=== PATIENT | female | born 1985 | race Caucasian/White ===

== ENCOUNTER 2019-02-02 21:20 | Emergency (ER) | payer OTHER ==
[~2019-02-02] VITALS: Ht 160 cm; Wt 86.2 kg
--- NOTE | 2019-02-02 22:09 | NUR ---
Patient discharged to home in stable conditon. Written and verbal after care instructions given. Patient verbalizes understanding of instructions. Patient ambulating with steady gait
[2019-02-02 22:11] VITALS: BP 104/63
[2019-02-02] MEDS ORDERED: HYDROCODONE/APAP 10-325 MG TABLET PO ONE (22:15)
== END 2019-02-02 22:08 | disposition home or self-care (01) ==
LOC: ER 21:29
DX: M43.6 Torticollis (principal); J45.909 Unspecified asthma, uncomplicated
CPT/HCPCS: A4663

== ENCOUNTER 2019-02-26 12:16 | Emergency (ER) | payer OTHER ==
[~2019-02-26] VITALS: Ht 160 cm; Wt 90.7 kg
--- NOTE | 2019-02-26 12:45 | NUR ---
LOI KUHN AT BEDSIDE FOR MSE.
[2019-02-26] MEDS ORDERED: HYDROMORPHONE 1 MG/1 ML DISP.SYRIN IM ONE (13:00)
[2019-02-26] MEDS ORDERED: ONDANSETRON 4 MG/2 ML VIAL IM ONE (13:00)
[2019-02-26 13:01] VITALS: BP 120/75
--- NOTE | 2019-02-26 13:01 | NUR ---
Patient discharged to home in stable conditon. Written and verbal after care instructions given. Patient verbalizes understanding of instructions. ALL BELONGINGS W/ PT. PT SELF-AMBULATED W/O DIFFICULTY.
== END 2019-02-26 13:02 | disposition home or self-care (01) ==
LOC: ER 12:17
DX: M43.6 Torticollis (principal); J45.909 Unspecified asthma, uncomplicated
CPT/HCPCS: 96372 ×2; 99283; J1170; J2405; A4663

== ENCOUNTER 2019-03-31 19:23 | Emergency (ER) | payer OTHER ==
[~2019-03-31] VITALS: Ht 160 cm; Wt 86.2 kg
[2019-03-31] MEDS ORDERED: HYDROCODONE/APAP 10-325 MG TABLET ONE (20:59)
[2019-03-31] MEDS: HYDROCODONE/APAP 10-325 MG TABLET PO ONE (21:01)
--- NOTE | 2019-03-31 21:07 | NUR ---
PT STATES SHE WANTS TO GO HOME AND SLEEP STATES FRIEND WILL DRIVE HER HOME Patient discharged to home in stable conditon. Written and verbal after care instructions given. Patient verbalizes understanding of instructions. ANTALGIC GAIT DUE TO CHRONIC BACK PAIN PT BELONGINGS W/ HER
[2019-03-31 21:10] VITALS: BP 110/84
== END 2019-03-31 21:11 | disposition home or self-care (01) ==
LOC: ER 19:24
DX: M54.6 Pain in thoracic spine (principal); J45.909 Unspecified asthma, uncomplicated; Z88.2 Allergy status to sulfonamides
CPT/HCPCS: A4663

== ENCOUNTER 2019-05-02 21:55 | Emergency (ER) | payer OTHER ==
[~2019-05-02] VITALS: Ht 160 cm; Wt 86.2 kg
[2019-05-02] MEDS ORDERED: ALBU8.5H8 IH (22:01)
--- NOTE | 2019-05-02 22:07 | NUR ---
Dr. Franklin at bedside for MSE.
[2019-05-02] MEDS ORDERED: LORAZEPAM 2 MG/1 ML VIAL IV ONE (22:15)
[2019-05-02] MEDS ORDERED: LORAZEPAM 2 MG/1 ML VIAL ONE (22:16)
[2019-05-02] MEDS ORDERED: HYDROCODONE/APAP 10-325 MG TABLET ONE (22:50)
--- NOTE | 2019-05-02 22:54 | NUR ---
Patient discharged to home in stable conditon. Written and verbal after care instructions given. Patient verbalizes understanding of instructions. Pt ambulated out of ER with steady gait, no acute signs of distress, VSS, all belongings taken, IV site discontinued.
[2019-05-02 22:55] VITALS: BP 110/65
[2019-05-02] MEDS ORDERED: HYDROCODONE/APAP 10-325 MG TABLET PO ONE (23:00)
[2019-05-29] MEDS ORDERED: CEPH-570 PO (20:42)
== END 2019-05-02 22:55 | disposition home or self-care (01) ==
LOC: ER 21:56
DX: G89.29 Other chronic pain (principal); M25.512 Pain in left shoulder; M54.2 Cervicalgia; F11.20 Opioid dependence, uncomplicated; J45.909 Unspecified asthma, uncomplicated; Z88.2 Allergy status to sulfonamides; Z79.899 Other long term (current) drug therapy
CPT/HCPCS: 96374; 99283; J2060; A4663

== ENCOUNTER 2019-05-29 20:30 | Emergency (ER) | payer OTHER ==
[~2019-05-29] VITALS: Ht 160 cm; Wt 86.2 kg
--- NOTE | 2019-05-29 20:49 | NUR ---
Dr. Ng at bedside for MSE.
[2019-05-29] MEDS ORDERED: HYDROCODONE/APAP 10-325 MG TABLET ONE (20:52)
[2019-05-29 20:55] VITALS: BP 145/98
--- NOTE | 2019-05-29 20:55 | NUR ---
Patient discharged to home in stable conditon. Written and verbal after care instructions given. Patient verbalizes understanding of instructions. Pt ambulated out of ER with steady gait, no acute signs of distress, VSS, all belongings taken.
[2019-05-29] MEDS ORDERED: HYDROCODONE/APAP 10-325 MG TABLET PO ONE (21:00)
== END 2019-05-29 20:55 | disposition home or self-care (01) ==
LOC: ER 20:30
DX: G89.29 Other chronic pain (principal); M25.512 Pain in left shoulder; J45.909 Unspecified asthma, uncomplicated
CPT/HCPCS: A4663

== ENCOUNTER 2019-06-28 06:41 | Emergency (ER) | payer OTHER ==
[~2019-06-28] VITALS: Ht 160 cm; Wt 72.6 kg
[~2019-06-28 06:41] MED LIST: ALBU8.5H8 IH; CEPH-570 PO
--- NOTE | 2019-06-28 07:14 | NUR ---
Patient is 33yo female complaining of sharp pain in her neck and shoulders, and shooting pain in her lower back, down through her right knee. Patient is A&Ox3, and V/S are WNL (b/p= 115/62 HR=95). Patient is able to verbalize all needs. No SOB or respiratory distress reported. Will continue to monitor closely.
--- NOTE | 2019-06-28 07:26 | NUR ---
Patient discharged to home in stable condition.Patient instructed not to drive while taking medications. Written and verbal after care instructions given. Patient verbalizes understanding of instructions. Stressed follow up or return to ER for worsening s/s.
== END 2019-06-28 07:29 | disposition home or self-care (01) ==
LOC: ER 06:43
DX: M54.12 Radiculopathy, cervical region (principal); M54.30 Sciatica, unspecified side; G89.29 Other chronic pain; J45.909 Unspecified asthma, uncomplicated
CPT/HCPCS: A4663

== ENCOUNTER 2019-08-05 17:04 | Emergency (ER) | payer OTHER ==
[~2019-08-05] VITALS: Ht 160 cm; Wt 86.2 kg
--- NOTE | 2019-08-05 17:29 | NUR ---
Dr. Alejanrda at bedside for MSE
[2019-08-05] MEDS ORDERED: KETOROLAC TROMETHAMINE 30 MG INJ ONE (17:44)
[2019-08-05] MEDS ORDERED: HYDROCODONE/APAP 5-325MG TABLET PO ONE (17:45)
[2019-08-05] MEDS ORDERED: KETOROLAC TROMETHAMINE 30 MG INJ IM ONE (17:45)
[2019-08-05] MEDS ORDERED: HYDROCODONE/APAP 5-325MG TABLET ONE (17:45)
--- NOTE | 2019-08-05 17:57 | NUR ---
Patient discharged to home in stable condition. Written and verbal after care instructions given. Patient verbalizes understanding of instructions. Stressed follow up or return to ER for worsening s/s. Patient ambulating with steady gait. NAD noted. Patient states she is getting home via [employer]. patient showed [employer] trip confirmation.
[2019-08-05 18:02] VITALS: BP 121/81
== END 2019-08-05 17:57 | disposition home or self-care (01) ==
LOC: ER 17:06
DX: M54.12 Radiculopathy, cervical region (principal); G89.29 Other chronic pain; M25.512 Pain in left shoulder; J45.909 Unspecified asthma, uncomplicated; Z79.899 Other long term (current) drug therapy
CPT/HCPCS: 96372; 99283; J1885; A4663

== ENCOUNTER 2019-09-08 19:16 | Emergency (ER) | payer OTHER ==
[~2019-09-08] VITALS: Ht 157.5 cm; Wt 86.2 kg
--- NOTE | 2019-09-08 19:32 | NUR ---
DR. CARRILLO AT BEDSIDE FOR MSE.
[2019-09-08 19:42] VITALS: BP 145/88
[2019-09-08] MEDS ORDERED: HYDROCODONE/APAP 10-325 MG TABLET ONE (19:42)
--- NOTE | 2019-09-08 19:42 | NUR ---
Patient discharged to home in stable condition. Written and verbal after care instructions given. Patient verbalizes understanding of instructions. Stressed follow up or return to ER for worsening s/s. PATIENT LEFT WITH STABLE GAIT.
[2019-09-08] MEDS ORDERED: HYDROCODONE/APAP 10-325 MG TABLET PO ONE (19:45)
== END 2019-09-08 19:50 | disposition home or self-care (01) ==
LOC: ER 19:18
DX: M25.512 Pain in left shoulder (principal); G89.29 Other chronic pain; J45.909 Unspecified asthma, uncomplicated; F11.20 Opioid dependence, uncomplicated
CPT/HCPCS: A4663

== ENCOUNTER 2019-10-01 22:27 | Emergency (ER) | payer OTHER ==
[~2019-10-01] VITALS: Ht 160 cm; Wt 86.2 kg
--- NOTE | 2019-10-01 23:03 | NUR ---
Dr. Rivera at bedside for MSE
--- NOTE | 2019-10-01 23:09 | NUR ---
Patient discharged to home in stable condition. Written and verbal after care instructions given. Patient verbalizes understanding of instructions. Stressed follow up or return to ER for worsening s/s. aa/ox4. able to speak in complete sentences respirations even and unlabored ambulatory with steady gait all belongings with pt
[2019-10-01 23:11] VITALS: BP 120/48
== END 2019-10-01 23:09 | disposition home or self-care (01) ==
LOC: ER 22:28
DX: M54.12 Radiculopathy, cervical region (principal); J45.909 Unspecified asthma, uncomplicated
CPT/HCPCS: A4663

== ENCOUNTER 2019-12-28 11:29 | Emergency (ER) | payer OTHER ==
[~2019-12-28] VITALS: Ht 160 cm; Wt 86.2 kg
[~2019-12-28 11:29] MED LIST changes: -CEPH-570 PO
[2019-12-28] MEDS ORDERED: ACETAMINOPHEN 325 MG TABLET PO ONE (11:45)
[2019-12-28] MEDS ORDERED: DIAZEPAM 2 MG TABLET PO ONE (11:45)
[2019-12-28] MEDS ORDERED: KETOROLAC TROMETHAMINE 30 MG INJ IM ONE (11:45)
[2019-12-28] MEDS ORDERED: CYCLOBENZAPRINE HCL 10 MG TABLET PO ONE (11:45)
[2019-12-28] MEDS ORDERED: LIDOCAINE 5% PATCH TD ONE ×2 (11:45→11:59)
[2019-12-28] MEDS ORDERED: DEXAMETHASONE SOD PHOSPHATE 4 MG INJ IM ONE (11:45)
[2019-12-28] MEDS ORDERED: ACETAMINOPHEN ES 500 MG TABLET ONE (11:57)
[2019-12-28] MEDS ORDERED: KETOROLAC TROMETHAMINE 30 MG INJ ONE (11:57)
[2019-12-28] MEDS ORDERED: CYCLOBENZAPRINE HCL 10 MG TABLET ONE (11:57)
[2019-12-28] MEDS ORDERED: DEXAMETHASONE SOD PHOSPHATE 10 MG INJ ONE (11:59)
[2019-12-28] MEDS ORDERED: DIAZEPAM 5 MG TABLET ONE (11:59)
[2019-12-28 12:01] LABS: *URINE HCG, QUAL NEG (NEGATIVE)
[2019-12-28 12:12] LABS: *AMPHETAMINE, URINE NEGATIVE (NEGATIVE); *CANNABINOID, URINE NEGATIVE (NEGATIVE); *COCCAINE, URINE NEGATIVE (NEGATIVE); *OPIATE, URINE POSITIVE (NEGATIVE); *PHENCYCLIDINE SCREEN,URINE NEGATIVE (NEGATIVE)
--- NOTE | 2019-12-28 13:42 | NUR ---
Patient discharged to home in stable condition. Written and verbal after care instructions given. Patient verbalizes understanding of instructions. Stressed follow up or return to ER for worsening s/s.
== END 2019-12-28 13:44 | disposition home or self-care (01) ==
LOC: ER 11:29
DX: M43.6 Torticollis (principal); G89.29 Other chronic pain; M54.2 Cervicalgia; J45.909 Unspecified asthma, uncomplicated; Z88.2 Allergy status to sulfonamides
CPT/HCPCS: 80307; 84703; 96372; 99284; J1100; J1885; A4663; A9150